=== PATIENT | female | born 1950 | race Two or more races ===

== ENCOUNTER 2017-07-12 11:08 | Outpatient (CLI) | payer OTHER | END 2017-07-12 11:19 | disposition home or self-care (01) | LOC: MAMO-SONO 11:08 | DX: R92.1 Mammographic calcification found on diagnostic imaging of breast (principal) ==

== ENCOUNTER 2017-07-25 16:11 | Outpatient (CLI) | payer OTHER | END 2017-07-25 16:15 | disposition home or self-care (01) | LOC: RAD 16:11 | DX: R06.00 Dyspnea, unspecified (principal); R05 Cough ==

== ENCOUNTER 2018-04-09 10:31 | Outpatient (CLI) | payer OTHER | END 2018-04-10 12:01 | disposition home or self-care (01) | LOC: MAMO-SONO 10:31 | DX: R92.1 Mammographic calcification found on diagnostic imaging of breast (principal); M25.569 Pain in unspecified knee ==

== ENCOUNTER 2018-04-22 14:04 | Outpatient (CLI) | payer OTHER | END 2018-04-22 14:15 | disposition home or self-care (01) | LOC: NUCLEAR 14:04 | DX: M85.80 Other specified disorders of bone density and structure, unspecified site (principal); M81.0 Age-related osteoporosis without current pathological fracture ==

== ENCOUNTER 2018-09-24 13:41 | Outpatient (CLI) | payer OTHER | END 2018-09-24 13:45 | disposition home or self-care (01) | LOC: MAMO-SONO 13:41 | DX: Z12.31 Encounter for screening mammogram for malignant neoplasm of breast (principal); Z87.898 Personal history of other specified conditions; R92.1 Mammographic calcification found on diagnostic imaging of breast ==

== ENCOUNTER 2018-10-22 13:03 | Outpatient (CLI) | payer OTHER | END 2018-10-22 13:10 | disposition home or self-care (01) | LOC: RAD 13:03 | DX: M79.672 Pain in left foot (principal); M25.572 Pain in left ankle and joints of left foot ==

== ENCOUNTER → 2019-03-19 | Emergency (ER) | payer OTHER ==
[~2019-03-19] VITALS: Ht 154.9 cm; Wt 56.7 kg
[~2019-03-19] MED LIST: CATAPRES0.1 MG PO; FENOFIBRATE150 MG PO; JANUMET 50-5001 EACH PO; VASOTEC5 MG PO
== END | disposition home or self-care (01) ==
LOC: ER 10:44
DX: S00.83XA Contusion of other part of head, initial encounter (principal); W18.39XA Other fall on same level, initial encounter; Y93.89 Activity, other specified; Y92.89 Other specified places as the place of occurrence of the external cause; Y99.8 Other external cause status

== ENCOUNTER 2020-01-26 10:20 | Outpatient (CLI) | payer OTHER | END 2020-01-26 12:29 | disposition home or self-care (01) | LOC: RAD 10:20 | PROVIDERS: ATTEND Family Medicine Geriatric Medicine | DX: M79.642 Pain in left hand (principal); L60.8 Other nail disorders; M79.646 Pain in unspecified finger(s) ==

== ENCOUNTER 2020-06-15 13:39 | Outpatient (CLI) | payer OTHER | END 2020-06-15 13:52 | disposition home or self-care (01) | LOC: MAMO-SONO 13:39 | PROVIDERS: ATTEND Family Medicine Geriatric Medicine | DX: R92.1 Mammographic calcification found on diagnostic imaging of breast (principal) ==

== ENCOUNTER → 2020-06-28 14:04 | Outpatient (CLI) | payer OTHER | END | disposition home or self-care (01) | LOC: NUCLEAR 14:00 | PROVIDERS: ATTEND Family Medicine Geriatric Medicine | DX: M85.80 Other specified disorders of bone density and structure, unspecified site (principal); M81.0 Age-related osteoporosis without current pathological fracture ==

== ENCOUNTER → 2020-10-14 | Outpatient (CLI) | payer OTHER | END | disposition home or self-care (01) | LOC: MRI 08:31 | PROVIDERS: ATTEND Orthopaedic Surgery | DX: L60.8 Other nail disorders (principal); L03.012 Cellulitis of left finger | CPT/HCPCS: 73218 ==

== ENCOUNTER 2020-11-15 09:47 | Outpatient (CLI) | payer OTHER | END 2020-11-15 09:54 | disposition home or self-care (01) | LOC: RAD 09:47 | PROVIDERS: ATTEND Family Medicine Geriatric Medicine | DX: I10 Essential (primary) hypertension (principal); R63.5 Abnormal weight gain ==

== ENCOUNTER 2022-08-31 12:31 | Outpatient (CLI) | payer OTHER | END 2022-08-31 12:34 | disposition home or self-care (01) | LOC: NUCLEAR 12:31 | PROVIDERS: ATTEND Family Medicine Geriatric Medicine | DX: M85.80 Other specified disorders of bone density and structure, unspecified site (principal) ==

== ENCOUNTER 2022-09-05 12:43 | Outpatient (CLI) | payer OTHER | END 2022-09-05 12:55 | disposition home or self-care (01) | LOC: MAMO-SONO 12:43 | PROVIDERS: ATTEND Family Medicine Geriatric Medicine | DX: R92.2 Inconclusive mammogram (principal) ==

== ENCOUNTER 2023-02-09 13:25 | Emergency (ER) | payer OTHER ==
[~2023-02-09] VITALS: Ht 160 cm; Wt 59.0 kg
[2023-02-09 14:52] LABS: HEMATOCRIT 43.1 % (36.0-45.00); HEMOGLOBIN 15.2 g/dL (12.0-15.00); MEAN CELL VOLUME 91.1 fL (80.00-100.00); MEAN CORPUSCULAR HEMOGLOBIN 32.1 pg (27.00-32.0); MEAN CORPUSCULAR HGB CONC 35.2 g/dl (32.0-36.0); PLATELET COUNT 191 K/uL (150-450); RED BLOOD COUNT 4.73 M/uL (4.00-6.00); RED CELL DISTRIBUTION WIDTH 12.8 % (11.5-14.5)
== END 2023-02-09 16:06 | disposition home or self-care (01) ==
LOC: ER 13:25
PROVIDERS: General Practice
DX: B34.9 Viral infection, unspecified (principal); E11.9 Type 2 diabetes mellitus without complications; Z79.84 Long term (current) use of oral hypoglycemic drugs; I10 Essential (primary) hypertension; Z20.822 Contact with and (suspected) exposure to COVID-19

== ENCOUNTER 2023-04-11 12:21 | Outpatient (CLI) | payer OTHER | END 2023-04-11 12:26 | disposition home or self-care (01) | LOC: RAD 12:21 | PROVIDERS: ATTEND Medical Genetics, Ph.D. Medical Genetics | DX: R06.02 Shortness of breath (principal) ==

== ENCOUNTER 2023-11-09 08:00 | Outpatient (CLI) | payer OTHER | END 2023-11-09 08:12 | disposition home or self-care (01) | LOC: SONOGRAMA 08:00 | PROVIDERS: ATTEND Internal Medicine Gastroenterology | DX: R10.13 Epigastric pain (principal) ==

== ENCOUNTER 2024-02-20 13:01 | Outpatient (CLI) | payer OTHER | END 2024-02-20 13:09 | disposition home or self-care (01) | LOC: MAMO-SONO 13:01 | PROVIDERS: ATTEND Student in an Organized Health Care Education/Training Program | DX: N60.11 Diffuse cystic mastopathy of right breast (principal); N60.12 Diffuse cystic mastopathy of left breast; Z12.31 Encounter for screening mammogram for malignant neoplasm of breast ==